=== PATIENT | female | born 1985 | race Caucasian/White ===

== ENCOUNTER 2019-12-03 19:57 | Inpatient (IN) ==
--- NOTE | 2019-12-03 20:24 | Emergency Department Note ---
Impression & Plan Bipolar depression manic phase, Drug abuse, Suicidal ideation ED Provider Note NAME: YELITZA BEAVERS AGE: 34 SEX: F : 1985 ARRIVES VIA: [employer] INFORMANT: Patient, ED PROVIDER(S): Nilton Monique DO CHIEF COMPLAINT: Manic depression HPI: The patient is a 34-year-old [facility]. The patient has been noticing over the last week that her rafael has been getting worse. The patient states that she has a history of drug abuse. She started using methamphetamines again. She states this occurred approximately 4 days ago. She states that she has been noncompliant with her bipolar medications over the last 48 hours. According to the [facility] police who presented to the emergency department with the patient she was very agitated on scene. She also was making suicidal ideation known to her significant other. She was having an argument with her significant other as well. The patient was much more calm for my evaluation. At this time she is denying any difficulty breathing. She denies having any fever or cough. She is had no exposure to COVID-19 as far she knows. She states that she has not had any alcohol or recreational drugs over the last 24 hours. She states that she has been having significant insomnia and feels though she is very manic at this time. The patient states that she had a recent change to her Geodon dosage by her primary therapist. ROS: See above HPI for pertinent positives & negatives. A total of 10 systems reviewed and were otherwise negative. PAST MEDICAL HISTORY: See Below PAST SURGICAL HISTORY: See Below FAMILY HISTORY: See Below SOCIAL HISTORY: See Below HOME MEDICATIONS: See Below ALLERGIES: See Below VITALS: See Below PHYSICAL EXAMINATION: GENERAL: The patient is awake and alert. The patient is very anxious appearing. EYES: The conjunctivae are clear. The pupils are round and reactive. EARS, NOSE, MOUTH AND THROAT: The nose is without any evidence of any deformity. Mucous membranes are moist. Tongue is midline. NECK: The neck is nontender and supple. RESPIRATORY: Normal respiratory effort is noted there is no evidence of wheezing rhonchi or rales CARDIOVASCULAR: Tachycardic rate with regular rhythm was noted. There was no definite murmur. GASTROINTESTINAL: The abdomen is soft. Abdomen is nontender. MUSCULOSKELETAL/EXTREMITIES: There is no evidence of gross deformity full range of motion is noted in the hips and shoulders. SKIN: There is no obvious evidence of any rash. There are no petechiae, pallor or cyanosis noted. NEUROLOGIC: Patient is awake alert and oriented x3 strength is symmetric patellar reflexes are 2+ bilaterally PSYCH: The patient is awake and alert. She is very guarded. She is denying any suicidal homicidal ideation at this time. She makes poor eye contact for most of the evaluation. Her thought processes very tangential. MEDICAL DECISION MAKING: The patient is a 34-year-old female who presented to the emergency department for a mental health evaluation. The patient arrived with police for 302 evaluation. The patient has a history of manic depression. She was very manic upon arrival to the emergency department. Her thought process was very tangential. She has very poor insight into her overall condition at this time. The patient was medically cleared in the emergency department with the exception of a urinalysis for drug screen at this time. The patient was refusing to give us a urine. Otherwise she was medically cleared. She was treated with m edication for her underlying mental health condition. She was feeling much better on subsequent reevaluation. She was evaluated by the mental health egg caser in the emergency department. At this time bed search is underway. The 302 was upheld by myself. The patient was signed out to Dr. Rahman at change of shift. Please see her note for continuation of care and disposition. Triage Nursing notes reviewed. Prior medical records reviewed Vital Signs: reviewed and remarkable for elevated blood pressure and tachycardia. Differential diagnosis: Mood disorder, infection, hypoglycemia, electrolyte abnormalities, cardiac sources, intracerebral event, toxicologic, trauma, neurologic, as well as other pathologies. ER treatment provided: See below Diagnostics interpreted by me: ECG: none Laboratory studies: As stated above and show below. Imaging studies: See below Consultation(s): none ED COURSE: Procedures: none PDMP:reviewed and no issues Critical Care: None Past Med/Surg History Medical History (Updated 12/03/19 @ 23:57 by Nilton Monique DO) Anxiety (Chronic) Bipolar disorder Hepatitis (Acute) Hyperbilirubinemia (Acute) Surgical History (Updated 12/03/19 @ 20:20 by Nilton Monique DO) H/O tubal ligation (Resolved) Social History Smoking Status: Current every day smoker Preferred Language: Divehi marital status: Current Living Situation: Family Feels Safe at Home: Yes Allergies Allergies Allergy/AdvReac Type Severity Reaction Status Date / Time No Known Allergies Allergy Verified 12/03/19 20:14 Home Meds Home Medications Medication Instructions Recorded Confirmed oxcarbazepine 600 mg PO BID 12/03/19 12/03/19 ziprasidone HCl 20 mg PO BID 12/03/19 12/03/19 Results & Data (ED) Vital Signs Vital Signs - 24 hr 12/03/19 20:15 12/04/19 00:10 Temperature 37.8 C H Temperature Source Oral Pulse Rate 123 H Pulse Rate [Right Finger] 98 H Respiratory Rate 20 18 Blood Pressure 154/103 H Blood Pressure [Left Arm] 153/99 H Blood Pressure Mean 120 Blood Pressure Mean [Left Arm] 117 Pulse Oximetry 99 97 Oxygen Delivery Method Room Air Room Air Sepsis Recent Fever Within 48 Hours No Sepsis New/Unexplained Change in Mental Status No Sepsis Action Taken by Nursing No Action Required Home Medications Current Medication List: was personally reviewed by me Laboratory Data Attestation: I reviewed the patient's lab results. Result diagrams: 12/03/19 20:57 12/03/19 20:57 Lab Results 12/03/19 12/03/19 12/03/19 Range/Units 20:57 20:57 20:57 WBC 8.11 (4.8-10.8) K/uL RBC 4.85 (4.2-5.4) M/uL Hgb 14.7 (12.0-16.0) g/dL Hct 41.0 (37-47) % MCV 84.5 (80-100) fL MCH 30.3 (25-34) pg MCHC 35.9 (32-36) g/dL RDW Std Deviation 37.1 (36.4-46.3) fL RDW Coeff of Jazmin 12.1 (11.5-14.5) % Plt Count 201 (130-400) K/uL MPV 9.1 (7.4-10.4) fL Immature Gran % (Auto) 0.1 % Neut % (Auto) 75.6 % Lymph % (Auto) 16.2 % Pinal % (Auto) 7.0 % Eos % (Auto) 0.7 % Baso % (Auto) 0.4 % Neut # (Auto) 6.13 (1.4-6.5) K/uL Lymph # (Auto) 1.31 (1.2-3.4) K/uL Pinal # (Auto) 0.57 (0.11-0.59) K/uL Eos # (Auto) 0.06 (0-0.5) K/uL Baso # (Auto) 0.03 (0-0.2) K/uL Immature Gran # (Auto) 0.01 (0.00-0.02) K/uL Sodium 140 (136-145) mmol/L Potassium 3.7 (3.5-5.1) mmol/L Chloride 109 H (98-107) mmol/L Carbon Dioxide 26 (21-32) mmol/L Anion Gap 6.0 (3-11) BUN 10 (7-18) mg/dl Creatinine 0.83 (0.6-1.2) mg/dl Est Cr Clr Drug Dosing Not Reportable Est GFR ( Amer) 105.9 Est GFR (Non-Af Amer) 91.4 BUN/Creatinine Ratio 11.8 (10-20) Glucose 99 (70-99) mg/dl Calcium 9.5 (8.5-10.1) mg/dl Total Bilirubin 0.7 (0.2-1) mg/dl AST 20 (15-37) U/L ALT 27 (12-78) U/L Alkaline Phosphatase 63 (45-117) U/L Total Protein 7.5 (6.4-8.2) gm/dl Albumin 4.4 (3.4-5.0) gm/dl Globulin 3.1 (2.5-4.0) gm/dl Albumin/Globulin Ratio 1.4 (0.9-2) TSH 0.812 (0.300-4.500) uIu/ml HCG, Qual (Negative) Salicylates 3.7 (2.8-20) mg/dl Acetaminophen < 2 L (10-30) ug/ml Ethyl Alcohol mg/dL (0-3) mg/dl 12/03/19 12/03/19 Range/Units 20:57 20:57 WBC (4.8-10.8) K/uL RBC (4.2-5.4) M/uL Hgb (12.0-16.0) g/dL Hct (37-47) % MCV (80-100) fL MCH (25-34) pg MCHC (32-36) g/dL RDW Std Deviation (36.4-46.3) fL RDW Coeff of Jazmin (11.5-14.5) % Plt Count (130-400) K/uL MPV (7.4-10.4) fL Immature Gran % (Auto) % Neut % (Auto) % Lymph % (Auto) % Pinal % (Auto) % Eos % (Auto) % Baso % (Auto) % Neut # (Auto) (1.4-6.5) K/uL Lymph # (Auto) (1.2-3.4) K/uL Pinal # (Auto) (0.11-0.59) K/uL Eos # (Auto) (0-0.5) K/uL Baso # (Auto) (0-0.2) K/uL Immature Gran # (Auto) (0.00-0.02) K/uL Sodium (136-145) mmol/L Potassium (3.5-5.1) mmol/L Chloride (98-107) mmol/L Carbon Dioxide (21-32) mmol/L Anion Gap (3-11) BUN (7-18) mg/dl Creatinine (0.6-1.2) mg/dl Est Cr Clr Drug Dosing Est GFR ( Amer) Est GFR (Non-Af Amer) BUN/Creatinine Ratio (10-20) Glucose (70-99) mg/dl Calcium (8.5-10.1) mg/dl Total Bilirubin (0.2-1) mg/dl AST (15-37) U/L ALT (12-78) U/L Alkaline Phosphatase (45-117) U/L Total Protein (6.4-8.2) gm/dl Albumin (3.4-5.0) gm/dl Globulin (2.5-4.0) gm/dl Albumin/Globulin Ratio (0.9-2) TSH (0.300-4.500) uIu/ml HCG, Qual Negative (Negative) Salicylates (2.8-20) mg/dl Acetaminophen (10-30) ug/ml Ethyl Alcohol mg/dL < 3.0 (0-3) mg/dl Administered Medications Discontinued Medications Ziprasidone (Geodon) 40 mg PO ONE ONE Stop: 12/03/19 20:17 Last Admin: 12/03/19 20:39 Dose: 40 mg Documented by: [id number] Prescription Drug Monitoring [place] Drug Monitoring Program reviewed and no issues identified Blood Pressure Blood Pressure Findings: Elevated blood pressure Blood Pressure Disposition: Referred to patients primary care provider Discharge Plan Visit Data Chief Complaint: Mental Health Evaluation Stated Complaint: [facility] ED Provider: Nilton Monique Discharge Problem: Bipolar depression manic phase, Drug abuse, Suicidal ideation Patient Disposition: Still a Patient Condition: Good Forms Stand Alone Forms: [facility] [employer], Suicide Prevention Resources Prescriptions Prescriptions: No Action ziprasidone HCl 20 mg capsule 20 mg PO BID RF: 0 oxcarbazepine 600 mg tablet 600 mg PO BID RF: 0 Referrals Referrals: Raquel Adams DO [Primary Care Provider] - Discharge Problem: Bipolar depression manic phase Qualifiers: Current episode severity: unspecified Qualified Code(s): F31.10 - Bipolar disorder, current episode manic without psychotic features, unspecified
[2019-12-03 21:13] LABS: Basophils # (auto) 0.03 K/uL (0-0.2); Basophils % (auto) 0.4 %; Eosinophils # (auto) 0.06 K/uL (0-0.5); Eosinophils % (auto) 0.7 %; Hemoglobin 14.7 g/dL (12.0-16.0); Immature Granulocytes # (auto) 0.01 K/uL (0.00-0.02); Immature Granulocytes % (auto) 0.1 %; Lymphocytes # (auto) 1.31 K/uL (1.2-3.4); Lymphocytes % (auto) 16.2 %; Mean Corpuscular Hemoglobin 30.3 pg (25-34); Mean Corpuscular Hgb Conc 35.9 g/dL (32-36); Mean Corpuscular Volume 84.5 fL (80-100); Mean Platelet Volume 9.1 fL (7.4-10.4); Monocytes # (auto) 0.57 K/uL (0.11-0.59); Neutrophils # (auto) 6.13 K/uL (1.4-6.5); Neutrophils % (auto) 75.6 %; Platelet Count 201 K/uL (130-400); RDW Coefficient of Variation 12.1 % (11.5-14.5); RDW Standard Deviation 37.1 fL (36.4-46.3); Red Blood Count 4.85 M/uL (4.2-5.4); White Blood Count 8.11 K/uL (4.8-10.8)
[2019-12-03 21:25] LABS: Pregnancy Test, Serum Negative (Negative)
[2019-12-03 21:46] LABS: Alanine Aminotransferase 27 U/L (12-78); Albumin Level 4.4 gm/dl (3.4-5.0); Aspartate Aminotransferase 20 U/L (15-37); BUN Creatinine Ratio 11.8 (10-20); Blood Urea Nitrogen 10 mg/dl (7-18); Calcium 9.5 mg/dl (8.5-10.1); Carbon Dioxide 26 mmol/L (21-32); Chloride 109 mmol/L (98-107); Est GFR (African American) 105.9; Est GFR (Non-African American) 91.4; Glucose 99 mg/dl (70-99); Potassium 3.7 mmol/L (3.5-5.1); Sodium 140 mmol/L (136-145)
[2019-12-03 21:57] LABS: Albumin Globulin Ratio 1.4 (0.9-2); Alkaline Phosphatase 63 U/L (45-117); Bilirubin,Total 0.7 mg/dl (0.2-1); Globulin 3.1 gm/dl (2.5-4.0); Thyroid Stimulating Hormone 0.812 uIu/ml (0.300-4.500); Total Protein 7.5 gm/dl (6.4-8.2)
[2019-12-03 22:45] LABS: Acetaminophen < 2 ug/ml (10-30); Salicylate 3.7 mg/dl (2.8-20)
--- NOTE | 2019-12-04 01:07 | Emergency Department Note ---
ED Visit Note I received this patient in signout at the change of shift from Dr. Monique, pending mental health bed search. Patient has been 302. Patient apparently had a low-grade fever earlier in the evening and I have been asked to run a rapid COVID prior to psychiatric bed placement. Patient was not cooperative with obtaining the swab. She was given 20 mg of IM Geodon, which also happens to be her morning dose, with 2 mg of IM Ativan. COVID swab was obtained and is pending. A bed search will resume in the morning. Case has been signed out to Dr. Tolbert at the change of shift please see his notes for final disposition. . : Bipolar depression manic phase Qualifiers: Current episode severity: unspecified Qualified Code(s): F31.10 - Bipolar disorder, current episode manic without psychotic features, unspecified
[2019-12-04 01:22] LABS: Appearance Urine Cloudy (Clear); Bacteria Urine Automated Negative (Negative); Bilirubin Urine Negative (Negative); Blood Urine Negative (Negative); Color Urine Yellow; Epithelial Cell Urine Auto >30 /lpf (0-5); Glucose Urine UA Negative (Negative); Ketones Urine 2+ (Negative); Leukocyte Esterase Urine Trace (Negative); Nitrite Urine Negative (Negative); Protein Urine Negative (Negative); RBC Urine Automated 0-4 /hpf (0-4); Specific Gravity Urine 1.024 (1.000-1.030); Urobilinogen Urine Negative (Negative)
[2019-12-04 01:37] LABS: Amphetamines+Metham, Urine Pos (Neg); Barbiturates, Urine Neg (Neg); Benzodiazepine, Urine Neg (Neg); Cocaine, Urine Neg (Neg); MDMA (Ecstacy), Urine Neg (Neg); Methadone, Urine Neg (Neg); Opiate, Urine Neg (Neg); Phencyclidine, Urine Neg (Neg)
[2019-12-04] MEDS ORDERED: OXcarbazepine 150 MG TABLET PO STA (04:53)
[2019-12-04] MEDS ORDERED: LORazepam 2 MG/ML VIAL (IM USE) IM STA (05:08)
[2019-12-04] MEDS ORDERED: ZIPRASIDONE 20 MG/ML SDV IM STA (05:09)
[2019-12-04] MEDS ORDERED: ALUMINUM/MAGNESIUM SUSP 30 ML UDC PO PRN (12:16)
[2019-12-04] MEDS ORDERED: ACETAMINOPHEN 325 MG TAB PO PRN (12:16)
[2019-12-04] MEDS ORDERED: NICOTINE POLACRILEX 2 MG GUM MT PRN (12:16)
[2019-12-04] MEDS ORDERED: BISMUTH SUBSALICYLATE PER ML OMNICELL CHARGE PO PRN (12:16)
[2019-12-04] MEDS ORDERED: MAGNESIUM HYDROXIDE SUSP 30 ML UDC PO PRN (12:16)
[2019-12-04] MEDS ORDERED: SODIUM CHLORIDE 0.65% NA SOLN 45 ML (OCEAN) PRN (12:16)
--- NOTE | 2019-12-04 12:20 | Emergency Department Note ---
ED Visit Note This patient was initially seen by Dr. Monique and then subsequently signed out to Dr. Ramhan who signed the patient out to me at 6:30 AM. She is under a 302 and waiting for bed placement on signout. The patient was evaluated by 3 S. and admitted to 3 S. I was unable to evaluate the patient before she went up to 3 S. but the nurses did not report any issues with her. . : Bipolar depression manic phase Qualifiers: Current episode severity: unspecified Qualified Code(s): F31.10 - Bipolar disorder, current episode manic without psychotic features, unspecified
[2019-12-04] MEDS: NICOTINE 21 MG/24 HR TDSY TD SCH (13:16)
[2019-12-04] MEDS: OXcarbazepine 150 MG TABLET PO SCH (20:50)
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
[2019-12-05] MEDS: OXcarbazepine 150 MG TABLET PO SCH ×2 (08:49→21:50)
[2019-12-05] MEDS: NICOTINE 21 MG/24 HR TDSY TD SCH (08:49)
[2019-12-06 00:55] LABS: Amphetamine Urine, Confirm 853 ng/mL (<250); Marijuana Quant, GCMS Urine 1030 ng/mL (<5); Methamphetamine, Ur Confirm 7270 ng/mL (<250)
[2019-12-06 08:18] LABS: Glucose Fasting 83 mg/dl (70-99)
[2019-12-06 08:23] LABS: Chol HDL Ratio 4; Cholesterol 200 mg/dl (0-200); HDL Cholesterol 45 mg/dl; LDL Cholesterol Calculated 139 mg/dl; Triglycerides 81 mg/dl (0-150); VLDL Cholesterol 16 mg/dl
[2019-12-06] MEDS: OXcarbazepine 150 MG TABLET PO SCH ×2 (08:42→21:05)
[2019-12-06] MEDS: NICOTINE 21 MG/24 HR TDSY TD SCH (08:42)
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
[2019-12-07] MEDS: NICOTINE 21 MG/24 HR TDSY TD SCH (08:51)
[2019-12-07] MEDS: OXcarbazepine 150 MG TABLET PO SCH ×2 (08:52→21:06)
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
[2019-12-08] MEDS: OXcarbazepine 150 MG TABLET PO SCH (08:54)
[2019-12-08] MEDS: NICOTINE 21 MG/24 HR TDSY TD SCH (09:01)
--- NOTE | 2019-12-08 10:43 | Discharge Summary ---
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 realizes that in order to succeed she needs to be both honest with her sponsor and receptive to the sponsor's feedback. -The patient also reports that she thinks that the fact that her case has been referred to [facility] is "a good thing" in terms of her efforts to achieve and maintain abstinence because she knows that she will be randomly tested and monitored. -The patient also reports that she is enthusiastic about beginning intensive treatment at [facility] beginning next week. (3) Drug abuse: 12/04 -longstanding cannabis abuse, which patient has been repeatedly advised against on review of records, given propensity to cause psychosis and her history of psychotic episodes. States she has a medical marijuana card, but does not know the name of the physician who certified her, stating she did it over the phone. She is unwilling to consider that cannabis could be worsening her symptoms, and plans to continue to smoke pot daily. She demonstrates very poor insight and judgment. 12/07 -See above. (4) Fever: 12/04 -temperature of 37.8 C on initial arrival to the ER, in the absence of other symptoms of infection. UA was contaminated, no UTI symptoms. Temperature has since normalized, and COVID test was negative. Low-grade fever was likely due to agitation and drug abuse. 12/05 - patient remains afebrile and asymptomatic Mental Health & Subst Abuse Tx Psychiatrist Name of Psychiatrist: BRITTNEY Andrews Psychiatrist's Date of Appointment with Psychiatrist: 12/14/19 Time of Appointment with Psychiatrist: 8:30 a.m. Psychiatric Appointment Comment: [id number], [place] [id number] Psychiatrist Release of Information: Obtained, Reviewed and Signed Therapist Name of Therapist: [facility] Date of Therapist Appointment: 12/13/19 Time of Therapist Appointment: 8:00 a.m. Therapy Appointment Comment: [address], [place] [address] Therapist Release of Information: Obtained, Reviewed and Signed Java Programmer Analyst Name of Java Programmer Analyst: Sarah Fisher Phone Number for Java Programmer Analyst: [phone] Date of Appointment with Java Programmer Analyst: 12/08/19 Case Management Appointment Comment: Will meet you in the parking lot post justin kaur Post Discharge Appointments Primary Care Physician Name Of Family Doctor: Daija Adams Primary Care Time of Appointment with PCP: Please follow up as needed Provider Appointment Comment: [address] [facility], [place] [address] Primary Care Release of Information: Obtained, Reviewed and Signed Smoking Cessation Counseling Tobacco Cessation Medication Prescribed at Discharge: Offered & Pt Refused Tobacco Cessation Counseling: Offered and Refused Contact Information Discharge Discharge Address: [address] [place] [id number] Discharge Plan Discharge Items Patient Disposition: Home - Self-Care Reason For Visit: BIPOLAR Discharge Diagnosis: Bipolar Disorder Condition on Discharge: Good Activity: Resume your previous activity Non-emergency contact: Primary Care Provider, Psychiatrist and Therapist Call non-emergency contact if: you have any medication questions and your symptoms worsen Follow-up/Referrals: Raquel Adams DO [Primary Care Provider] - Diet: Regular Addtl Attending Provider Instructions: SPECIAL CARE INSTRUCTIONS: 1. Follow through with your scheduled aftercare appointments. If unable to keep an appointment, please call to reschedule. 2. Take your medication only as prescribed. Medication should not be changed or stopped without the approval of your doctor. In the event of worsening symptoms or concerns about side effects, contact your doctor immediately. 3. Utilize new healthy coping skills, anger management skills, and stress management skills learned during your hospitalization. Journal feelings and process them with a support person. Identify stressors or situations that may result in relapse, deterioration or inappropriate behaviors and develop a plan to deal with those issues. 4. If your coping skills are ineffective and you are in crisis, contact your outpatient providers for direction. If unable to reach your providers, please call the CAN HELP LINE AT or go to the closest Emergency Room. 5. Avoid alcohol and un-prescribed drugs. 6. You have been provided with the Mental Health Advance Directives Pamphlet for your review. AFTERCARE APPOINTMENTS: * Please call your insurance company prior to your scheduled appointment to confirm your aftercare providers are covered. Take your insurance information to your appointments. WHO TO CALL AND WHEN: Medical Emergencies: For questions or emergencies related to your hospital stay, please contact the Inpatient Behavioral Health Unit at [phone]. A customer support assistant is on-call 16/11 for the Behavioral Health Unit for emergencies At any time you feel your situation is an emergency, you may also call 911 immediately. Your Doctors Instructions noted above were prepared by provider Ankit Isbell MD. Pending Studies at Discharge: No Stand-Alone Forms: [facility], Smoking Cessation, Suicide Prevention Resources Medications and DC Order Prescriptions: New ziprasidone HCl 20 mg Capsule 20 mg PO BID Qty: 60 RF: 0 oxcarbazepine [Trileptal] 600 mg tablet 600 mg PO BID Qty: 60 RF: 0 Discontinued ziprasidone HCl 20 mg capsule 20 mg PO BID RF: 0 oxcarbazepine 600 mg tablet 600 mg PO BID RF: 0 Discharge Orders: Discharge Order (Routine); Ordered 12/08/19 Ordered By: Ankit Isbell Admission Data Admit Date/Time: 12/04/19 11:23 Attending Provider: Antonieta Hillman Admit Provider: Antonieta Hillman Primary Care Provider: Raquel Adams Other Interventions: Discharge Summary Assessment (RN) Last Done: 12/08/19 10:13 PSY Interdisciplinary Discharge Planning Last Done: 12/08/19 10:15 C[place] [address] D/C day mgmt > 30 min Patient Type Established Medical Decision Making Moderate Complexity Diagnoses Bipolar depression manic phase F31.10 Current episode severity: unspecified Methamphetamine abuse F15.10 Drug abuse F19.10 Fever R50.9 Time Spent (min) 60
== END 2019-12-08 10:54 | disposition home or self-care (01) | DRG 885 ==
LOC: ED 19:57 → 3S 12-04 11:23